=== PATIENT | male | born 1995 | race Caucasian/White ===

== ENCOUNTER 2018-03-09 09:15 | Emergency (ER) | payer OTHER ==
[~2018-03-09] VITALS: Ht 193 cm; Wt 117.9 kg
[2018-03-09] MEDS ORDERED: KETOROLAC TROMETHAMINE 30 MG/ML VIAL IV STA (09:32)
[2018-03-09 10:14] LABS: BASOPHILS # (AUTO) 0.1 (0.0-0.1); BASOPHILS % 0.5 % (0.0-1.0); EOSINOPHILS # (AUTO) 0.5 (0.0-0.4); EOSINOPHILS % 5.1 % (0.0-6.0); HEMATOCRIT 38.5 % (38.2-49.6); HEMOGLOBIN 13.4 g/dL (14.0-18.0); LYMPHOCYTES # (AUTO) 1.2 (1.0-3.2); LYMPHOCYTES % 11.2 % (18.0-39.1); MEAN CORPUSCULAR HEMOGLOBIN 28.7 pg (28-32); MEAN CORPUSCULAR HGB CONC 34.8 g/dL (31-35); MEAN CORPUSCULAR VOLUME 82.4 fL (81-99); MONOCYTES # (AUTO) 0.8 (0.2-0.8); MONOCYTES % 7.2 % (4.4-11.3); NEUTROPHILS # (AUTO) 7.9 (2.1-6.9); PLATELET COUNT 189 x10e3/uL (140-360); RED BLOOD COUNT 4.67 x10e6/uL (4.3-5.7); RED CELL DISTRIBUTION WIDTH 12.2 % (11.7-14.4)
[2018-03-09 10:27] LABS: BLOOD UREA NITROGEN 14 mg/dL (7-26); BUN/CREATININE RATIO 14 (6-25); CALCIUM 9.1 mg/dL (8.4-10.2); CARBON DIOXIDE 21 mmol/L (22-29); CHLORIDE 105 mmol/L (98-107); CREATININE, SERUM 1.02 mg/dL (0.72-1.25); EST GLOMERULAR FILTRATION RATE > 60 ML/MIN (60-); GLUCOSE 100 mg/dL (74-118); SODIUM 136 mmol/L (136-145)
[2018-03-09] MEDS ORDERED: REGLAN5 MG PO (12:34)
[2018-03-09] MEDS ORDERED: BACTRIM DS TAB1 EACH PO (12:34)
[2018-03-09] MEDS ORDERED: KEFLEX500 MG PO (12:34)
[2018-03-09 13:02] VITALS: BP 121/80
== END 2018-03-09 13:08 | disposition home or self-care (01) ==
LOC: ER 09:15
DX: L73.2 Hidradenitis suppurativa (principal); G44.89 Other headache syndrome
CPT/HCPCS: 36415; 80048; 83518; 85025; 87070; 87400; 99283; J1885